=== PATIENT | male | born 1995 | race Caucasian/White ===

== ENCOUNTER 2020-07-14 22:12 | Emergency (ER) | payer SELFPAY ==
[2020-07-14 22:20] VITALS: PULSE 80; RESP 18; TEMP 36.5; O2SAT 100; BMI 34.7
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
== END 2020-07-15 | disposition home or self-care (01) ==
PROVIDERS: Emergency Provider Nurse Practitioner Family; PCP Nurse Practitioner
DX: S20.211A Contusion of right front wall of thorax, initial encounter (principal); V89.2XXA Person injured in unspecified motor-vehicle accident, traffic, initial encounter
CPT/HCPCS: 12345; 71101; 99281; 99282

== ENCOUNTER → 2022-03-12 13:09 | Outpatient (BNVA) | payer SELFPAY | PROVIDERS: PCP Nurse Practitioner Family; Visit Provider Nurse Practitioner Family | DX: R03.0 Elevated blood-pressure reading, without diagnosis of hypertension (principal); A64 Unspecified sexually transmitted disease | CPT/HCPCS: 80053; 80061 ==

== ENCOUNTER → 2023-03-03 08:12 | Outpatient (BNVA) | payer MEDICAID, SELFPAY | PROVIDERS: PCP Family Medicine; Visit Provider Podiatrist Foot & Ankle Surgery | DX: T84.84XA Pain due to internal orthopedic prosthetic devices, implants and grafts, initial encounter (principal); M25.571 Pain in right ankle and joints of right foot; G89.29 Other chronic pain; Y79.2 Prosthetic and other implants, materials and accessory orthopedic devices associated with adverse incidents; W19.XXXA Unspecified fall, initial encounter | CPT/HCPCS: 73610; 99203 ==

== ENCOUNTER 2023-04-09 10:29 | Day surgery (SDC) | payer MEDICAID, SELFPAY ==
[2023-04-02 09:38] VITALS: BMI 31.4
[2023-04-09] VITALS (10 sets, daily range): BP systolic 97–138; BP diastolic 45–83; PULSE 59–82; RESP 16–19; TEMP 36.1–37.1; O2SAT 96–99
[2023-04-09] MEDS: sodium chloride 0.9% 1,000 ML 30 ML IV (11:04)
[2023-04-09] MEDS: ceFAZolin 2,000 MG in sodium chloride 0.9% (plus) 50 ML 100 MG IV (12:00)
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
--- NOTE | 2023-04-09 12:04 | W.PM.OPSUD ---
Surgery/Procedure H&P Update DATE OF PROCEDURE: April 09, 2023 DATE H&P PERFORMED: 04/09/23 CHANGES TO PREVIOUS DOCUMENTATION: none PREOP DIAGNOSIS: Painful hardware right ankle PLANNED PROCEDURE: Operation Date: 04/09/23 12:00 Proposed Procedures p ?Deep hardware removal right ankle 05447,M25.571,T840.84XA(Right) - Josias Back DPM
--- NOTE | 2023-04-09 12:45 | XRR_ITS ---
PROCEDURE INFORMATION: Exam: XR Right Ankle Exam date and time: 04/09/2023 11:55 AM Age: 27 years old Clinical indication: Device placement; Other: Deep hardware removal right ankle; Prior surgery; Surgery date: Post-operative (0-2 days); Additional info: Post op TECHNIQUE: Imaging protocol: Radiologic exam of the right ankle. Views: 1 or 2 views. COMPARISON: CR XR ankle RT min 3V* [id number] 03/03/2023 8:17 AM FINDINGS: Bones/joints: Metallic orthopedic hardware in place in the lateral fibula has now been removed. Residual cortical defects are seen in the location of the removed hardware. 3 metallic screws are seen in the distal shaft of the tibia the screws have been fractured and the proximal portions of the screws have been removed. Soft tissues: Metallic jeremy are present in the lateral aspect of the ankle. XR/XR ankle RT 2V [id number] IMPRESSION: 1. Orthopedic hardware in the fibula has now been removed. 2. Retained screws are seen in the distal shaft of the tibia 3. Metallic jeremy lateral ankle
--- NOTE | 2023-04-09 12:47 | P.OP_ITS ---
Operative Report Date of procedure: April 09, 2023 Pre-op diagnosis: Preop Diagnosis Painful hardware right ankle Post-op diagnosis: Painful orthopedic hardware right ankle Procedure done: Deep hardware removal right ankle. CPT code 90778 Implants: 2-0 Vicryl, 3-0 Vicryl, skin jeremy Surgeon: Josias Back D.P.M. Flatware Maker: Gentry Estimated blood loss: Less than 5 19 minutes IV fluids: 0 Brief History: X-ray shows several screws backing out of the fibula, right ankle, plate is also elevated more than 2 mm off the fibula.? This corresponds to the patient's area of pain.? He is requesting hardware removal.? I reviewed at length with the patient, the risks, potential complications, benefits, alternatives, expectations, and typical outcomes associated with the surgery. The risks and potential complications were explained in detail, including but not limited to infection, wound dehiscence or soft tissue complications, bleeding and hematoma, chronic edema, neuritis or nerve damage producing numbness or chronic pain, CRPS, failure to relieve pain or worsening pain, thick / painful / unsightly scar, limited motion / stiffness, malposition, delayed union, malunion, or nonunion, fracture, reaction to implants, anesthetic complications, venous thromboembolism, and deformity recurrence.? I discussed the notion of no regrets with the patient as it pertains to complications and outcomes. The patient seemed to understand the nature of the proposed care and required convalescence. They asked appropriate questions, answered to their satisfaction. They are aware no guarantees can be made as to a satisfactory outcome and they understand there may be other possible unforeseen complications or outcomes not listed here that will be treated accordingly if they arise. There were no written or implied guarantees given to the patient. They gave informed consent to proceed. Procedure: Under mild sedation the patient was brought to the operating room and remained on the gurney in supine position. A timeout was performed. Anesthesia was then administered by the anesthesia service. Local anesthesia was injected by myself consisting of 20 cc of 0.5% Marcaine plain and 20 cc of Exparel diffusely in a V-block fashion to the right lateral leg. Well-padded pneumatic tourniquet was applied to the right high calf. The right lower extremity was scrubbed, prepped and draped utilizing normal aseptic technique. Right foot and ankle were exanguinated with an Esmarch bandage and the tourniquet was inflated to 250 mmHg. Attention was directed to the lateral aspect of the right ankle where bony landmarks were palpated the lateral malleolus and distal fibula. Prominence corresponding to plate and screws were able to be palpated as well. Directly over hardware a linear longitudinal incision was made through skin with a #15 blade with dissection carried down through subcutaneous tissue to the layer of hardware utilizing sharp and blunt technique. Care was taken to retract and preserve neurovascular and tendinous structures. All bleeders were ligated and cauterized as necessary. Total of 8 screws and 1 plate were explanted and passed from the operative field in toto without fragmentation. Syndesmotic screws were noted to have failed at the lateral tibia and were left in place. Smooth range of motion of the right ankle was appreciated intraoperatively. All rough edges were smoothed with a hand rasp and the incision was irrigated with copious amounts of sterile skin solution. The incision was then closed with periosteum reapproximated with 2-0 Vicryl, subcutaneous tissue with 3-0 Vicryl and skin with jeremy. The incision was dressed with Adaptic, sterile 4 x 4's, Kerlix and Devang wrap. Cam boot was applied to the right lower extremity. Tourniquet was then deflated and a prompt hyperemic response was noted to the distal digits of the right foot. Patient tolerated the procedure and anesthesia well and was transferred to the PACU with vital signs stable and vascular status intact. Following a period of postoperative monitoring will be discharged home may be weightbearing as tolerated. He was advised to elevate his right foot while resting. He was given prescription pain medication hydrocodone 10/325 mg to [facility] pharmacy. He was given at home care instructions and scheduled follow-up. Also provided my cell phone number to contact with any postoperative questions or concerns.
--- NOTE | 2023-04-09 13:24 | ANES.PREANE2 ---
Pre-Anesthetic Assessment Height/Weight: Height 1.88 m Weight 111.13 kg Temp Pulse Resp BP Pulse Ox O2 Del Method O2 Flow Rate 97.5 F L 72 18 114/73 96 Room Air 6 04/09/23 13:14 04/09/23 13:14 04/09/23 13:14 04/09/23 13:14 04/09/23 13:14 04/09/23 13:14 04/09/23 12:45 Preop Diagnosis: Painful hardware right ankle Operation Date: 04/09/23 12:00 Proposed Procedures p ?Deep hardware removal right ankle 58327,M25.571,T840.84XA(Right) - Josias Back DPM Familial anesthetic complications: none Was Beta Anahi taken within 24 hours: N/A Was Clonidine taken within 24 hours: N/A Last intake: Intake Last Liquid Date 04/08/23 Last Liquid Time 23:45 Last Solid Date 04/08/23 Last Solid Time 20:30 Social Tobacco and No alcohol Exam alert, oriented x 3, clear to auscultation bilaterally and regular rate & rhythm Airway Submandibular: within normal limits Cervical ROM: within normal limits Mallampati: Class II Dentition: chipped Pulmonary Chronic Obstructive Pulmonary Disease Anesthetic Plan ASA status: 2 Anesthesia: General Medications/Allergies Home Medications Medication Instructions Recorded Confirmed Last Taken Type cetirizine 10 mg tablet (Zyrtec) 10 mg PO DAILY 90 days #90 tabs 03/24/23 04/02/23 04/08/23 Rx multivitamin See Rx Instructions .Route .COMPLEX 04/02/23 04/02/23 04/08/23 History hydrocodone 10 mg-acetaminophen 1 tab PO Q8H PRN pain 7 days #21 04/09/23 Unknown Rx 325 mg tablet tabs Allergies Allergy/AdvReac Type Severity Reaction Status Date / Time No Known Allergies Allergy Verified 04/02/23 09:36 Current Medications Generic Name Dose Route Start Last Admin Trade Name Freq PRN Reason Stop Dose Admin Sodium Chloride 1,000 mls @ 30 mls/hr 04/09/23 10:45 04/09/23 13:18 Sodium Chloride 0.9% IV 04/10/23 10:44 Infused .Q24H TYRA Infusion PFSH Anesthesia Social History Smoking and tobacco status: current every day smoker cigarettes Packs smoked per day: 2 Second hand smoke exposure: No Smoking risk assessment/counseling performed?: No Alcohol intake: current Alcohol intake frequency: holidays/special occasions only Desire information about alcohol rehabilitation?: No Counseling given: No Substance/Drug Use: current Substance/Drug use frequency: daily Desire information about substance/drug rehabilitation?: No Counseling given: No Adopted: No Caregiver/support person: No Lives independently: Yes Data Anesthesia Cardiac Studies: No Data to Display
[2023-04-09] MEDS: HYDROcodone-acetaminophen 10-325 mg Tablet 1 TAB PO (13:27)
--- NOTE | 2023-04-09 14:23 | ANE.PACU2 ---
Inpatient post-anesthesia follow up: Airway intact: Yes Vital signs: Temperature 97.9 F Pulse Rate 70 Respiratory Rate 18 Blood Pressure 126/76 Pulse Oximetry 97 Oxygen Delivery Me thod Room Air Oxygen Flow Rate 6 Fraction of Inspir ed Oxygen Hydration adequate: Yes Nausea and vomiting: No Pain level: 2 Mental status: Baseline
== END 2023-04-09 13:41 | disposition home or self-care (01) ==
PROVIDERS: PCP Family Medicine; Visit Provider Podiatrist Foot & Ankle Surgery
PROC: (CPT 20680; principal; 2023-04-09 12:00)
DX: Y79.2 Prosthetic and other implants, materials and accessory orthopedic devices associated with adverse incidents (principal); T84.84XA Pain due to internal orthopedic prosthetic devices, implants and grafts, initial encounter; J44.9 Chronic obstructive pulmonary disease, unspecified; F17.210 Nicotine dependence, cigarettes, uncomplicated
CPT/HCPCS: 20680; 73600; J0690; J1100; J1170; J2250; J2405; J2704; J7030

== ENCOUNTER → 2023-04-17 13:21 | Outpatient (BNVA) | payer MEDICAID, SELFPAY | PROVIDERS: PCP Family Medicine; Visit Provider Podiatrist Foot & Ankle Surgery | DX: Z98.890 Other specified postprocedural states (principal); T84.84XA Pain due to internal orthopedic prosthetic devices, implants and grafts, initial encounter; Y79.2 Prosthetic and other implants, materials and accessory orthopedic devices associated with adverse incidents | CPT/HCPCS: 99024 ==

== ENCOUNTER → 2023-04-24 14:17 | Outpatient (BNVA) | payer MEDICAID, SELFPAY | PROVIDERS: PCP Family Medicine; Visit Provider Podiatrist Foot & Ankle Surgery | DX: Z98.890 Other specified postprocedural states (principal); T84.84XA Pain due to internal orthopedic prosthetic devices, implants and grafts, initial encounter; Y79.2 Prosthetic and other implants, materials and accessory orthopedic devices associated with adverse incidents | CPT/HCPCS: 99024 ==

== ENCOUNTER → 2024-04-15 12:21 | Outpatient (BNVA) | payer SELFPAY | PROVIDERS: PCP Family Medicine; Visit Provider Nurse Practitioner | DX: Z20.2 Contact with and (suspected) exposure to infections with a predominantly sexual mode of transmission (principal) | CPT/HCPCS: 87661 ==